=== PATIENT | male | born 1990 | race Caucasian/White ===

== ENCOUNTER 2016-07-17 14:00 | Emergency (ER) | payer OTHER ==
[~2016-07-17 14:00] MED LIST: NAPROSYN500 MG PO
[2016-07-17 14:12] LABS: INFLUENZA A NEG (NEG); INFLUENZA B NEG (NEG)
== END 2016-07-17 15:06 | disposition home or self-care (01) ==
LOC: CFTX 14:00
PROVIDERS: Nurse Practitioner
DX: J11.1 Influenza due to unidentified influenza virus with other respiratory manifestations (principal)
CPT/HCPCS: 87651; 87804; 99283